=== PATIENT | female | born 1955 | race Caucasian/White ===

== ENCOUNTER 2024-05-26 15:50 | Emergency (ER) | payer MEDICARE, BC ==
[~2024-05-26] VITALS: Ht 165.1 cm; Wt 59.0 kg
[2024-05-26 16:28] LABS: BASOPHILS % (AUTO) 0.4 % (0.0-2.0); EOSINOPHILS % (AUTO) 0.1 % (0.0-7.0); HEMATOCRIT 34.6 % (31.2-41.9); HEMOGLOBIN 11.4 g/dL (10.9-14.3); LYMPHOCYTES # (AUTO) 0.7 K/uL (0.8-4.8); LYMPHOCYTES % (AUTO) 10.7 % (20.5-51.5); MEAN CORPUSCULAR HEMOGLOBIN 30.1 uug (24.7-32.8); MEAN CORPUSCULAR HGB CONC 33 g/dL (32.3-35.6); MEAN CORPUSCULAR VOLUME 91.7 fL (75.5-95.3); MONOCYTES # (AUTO) 0.3 K/uL (0.1-1.30); MONOCYTES % (AUTO) 5.1 % (0.0-11.0); NEUTROPHILS # (AUTO) 5.3 K/uL (1.8-8.9); NEUTROPHILS % (AUTO) 83.7 % (38.5-71.5); PLATELET COUNT (AUTO) 293 K/uL (179-408); RED BLOOD CELL COUNT(AUTO) 3.77 MIL/uL (3.63-4.92); RED CELL DISTRIBUTION WIDTH 16.2 % (12.3-17.7); WHITE BLOOD COUNT (AUTO) 6.3 K/uL (3.8-11.8)
[2024-05-26 16:46] LABS: CALCIUM 8.8 mg/dL (8.5-10.1); CARBON DIOXIDE 30 mmol/L (21-32); CHLORIDE 95 mmol/L (98-107); CREATININE 0.5 mg/dL (0.6-1.3); GLUCOSE 59 mg/dL (74-106); POTASSIUM 3.8 mmol/L (3.5-5.1); SODIUM SERUM 135 mmol/L (136-145); UREA NITROGEN, BLOOD 14 mg/dL (7-18)
[2024-05-26 16:47] LABS: DIFFERENTIAL COMMENT 1
[2024-05-26 16:54] LABS: ALANINE AMINOTRANSFERASE 98 U/L (14-59); ALBUMIN 2.6 g/dL (3.4-5.0); ALKALINE PHOSPHATASE 283 U/L (50-136); ASPARTATE AMINOTRANSFERASE 122 U/L (15-37); BILIRUBIN,DIRECT 0.5 mg/dL (0.0-0.2); BILIRUBIN,TOTAL 0.9 mg/dL (0.2-1.0); TOTAL PROTEIN, SERUM 6.7 g/dL (6.4-8.2)
[2024-05-26] MEDS ORDERED: LIPA1CAP15 PO (16:59)
[2024-05-26] MEDS ORDERED: POTA-88 PO (16:59)
[2024-05-26] MEDS ORDERED: ATOR10TA PO (16:59)
[2024-05-26] MEDS ORDERED: MAGN400O6 PO (16:59)
[2024-05-26] MEDS ORDERED: INSU100V37 SQ (16:59)
[2024-05-26] MEDS ORDERED: NALO4SPR BNOSTRILS (16:59)
[2024-05-26] MEDS ORDERED: METO-295 PO (16:59)
[2024-05-26] MEDS ORDERED: LORA0.5T48 PO (16:59)
[2024-05-26] MEDS ORDERED: LOSA25TA27 PO (16:59)
[2024-05-26] MEDS ORDERED: DULO30CA2 PO (16:59)
[2024-05-26] MEDS ORDERED: FENT1PAT5 TP (16:59)
[2024-05-26] MEDS ORDERED: OXYC15TA2 PO (16:59)
[2024-05-26] MEDS ORDERED: ONDA4TAB11 PO (16:59)
[2024-05-26 18:40] VITALS: BP 143/85; O2SAT 96
== END 2024-05-26 18:41 | disposition home or self-care (01) ==
LOC: ER 16:13
DX: R55 Syncope and collapse (principal); E11.9 Type 2 diabetes mellitus without complications; E78.5 Hyperlipidemia, unspecified; Z79.4 Long term (current) use of insulin; Z79.899 Other long term (current) drug therapy; Z85.07 Personal history of malignant neoplasm of pancreas; Z87.19 Personal history of other diseases of the digestive system
CPT/HCPCS: 70450; 71045; 84484; 85025; 85730; A4606; A4663; C1758